=== PATIENT | female | born 1985 | race Two or more races ===

== ENCOUNTER 2024-08-16 09:13 | Emergency (ER) | payer OTHER ==
[~2024-08-16] VITALS: Ht 160 cm; Wt 58.1 kg
[2024-08-16] MEDS ORDERED: PANTOPRAZOLE SODIUM 40 MG/VIAL VIAL IV ONE (10:00)
== END 2024-08-16 10:44 | disposition home or self-care (01) ==
LOC: ER 09:13
DX: K21.9 Gastro-esophageal reflux disease without esophagitis (principal)